=== PATIENT | female | born 1940 | race Caucasian/White ===

== ENCOUNTER 2018-03-01 08:49 | Inpatient (IN) | payer MEDICARE, OTHER ==
[2018-03-01 09:14] LABS: ADD MAN DIFF? NO
[2018-03-01 09:16] LABS: BASOPHILS % 0.2 % (0.0-2.0); EOSINOPHILS # 0.1 10^3/ul (0.0-0.5); EOSINOPHILS % 1.3 % (0.0-7.0); HEMATOCRIT 35.7 % (37.0-47.0); HEMOGLOBIN 10.9 g/dl (12.0-16.0); LYMPHOCYTES % 11.2 % (15.0-51.0); MEAN CORPUSCULAR HEMOGLOBIN 23.9 pg (29.0-33.0); MEAN CORPUSCULAR HGB CONC 30.5 g/dl (32.0-37.0); MEAN CORPUSCULAR VOLUME 78.3 fl (82.0-101.0); MEAN PLATELET VOLUME 10.2 fl (7.4-10.4); MONOCYTE # 0.7 10^3/ul (0.3-0.9); MONOCYTES % 7.7 % (0.0-11.0); NEUTROPHIL # 6.8 10^3/ul (1.6-7.5); NEUTROPHILS % 78.9 % (39.0-77.0); PLATELET COUNT 333 10^3/UL (140-415); RED BLOOD COUNT 4.56 10^6/ul (4.20-5.40)
[2018-03-01 09:16] LABS: WHITE BLOOD COUNT 8.6 10^3/ul (4.8-10.8)
[2018-03-01 09:35] LABS: PROTIME 15.4 Sec (11.9-14.9); PT RATIO 1.2
[2018-03-01 09:36] LABS: ANION GAP 9 (5-13); BLOOD UREA NITROGEN 11 mg/dl (7-20); CALCIUM 8.7 mg/dl (8.4-10.2); CARBON DIOXIDE 34 mmol/L (21-31); CHLORIDE 94 mmol/L (97-110); CREATININE 0.72 mg/dl (0.44-1.00); GLUCOSE 129 mg/dl (70-220); PARTIAL THROMBOPLASTIN TIME 28.6 Sec (23.0-35.0); POTASSIUM 3.4 mmol/L (3.5-5.1); SODIUM 137 mmol/L (135-144)
[2018-03-01] MEDS: morphine 2 MG INJ IV ×4 (10:03→21:51)
[2018-03-01] MEDS: POTASSIUM CHLORIDE (SR) 20 MEQ TAB PO (10:03)
[2018-03-01] MEDS: ONDANSETRON 4 MG INJ IV (10:04)
[2018-03-01] MEDS ORDERED: IPRATROPIUM (NEB) 0.5 MG/2.5 ML AMP (10:19)
[2018-03-01] MEDS ORDERED: LEVALBUTEROL (NEB) 1.25 MG/0.5 ML AMP (10:19)
[2018-03-01 10:23] LABS: URINE BLOOD (Dip) POC Trace-intact (NEGATIVE); URINE GLUCOSE (Dip) POC Negative (NEGATIVE); URINE KETONES (Dip) POC Negative (NEGATIVE); URINE LEUKOCYTE EST (Dip) POC 3+ (NEGATIVE); URINE NITRITE (Dip) POC Negative (NEGATIVE); URINE TOTAL PROTEIN POC 1+ (NEGATIVE)
[2018-03-01] MEDS: LEVALBUTEROL (NEB) 1.25 MG/0.5 ML AMP HHN (10:38)
[2018-03-01] MEDS: IPRATROPIUM (NEB) 0.5 MG/2.5 ML AMP HHN (10:38)
[2018-03-01] MEDS: CIPROFLOXACIN 400MG/D5W 200 ML IVPB (11:11)
[2018-03-01] MEDS ORDERED: NACL 0.9% 3 ML SYG IV (11:30)
[2018-03-01 11:59] LABS: IRON 37 ug/dl (35-150)
[2018-03-01 12:08] LABS: % IRON SATURATION 13 % SAT (22-52); TOTAL IRON BINDING CAPACITY 291 ug/dl (241-421)
[2018-03-01] MEDS ORDERED: VALACYCLOVIR 500 MG TAB PO (17:30)
[2018-03-01] MEDS ORDERED: traMADol 50 MG TAB PO (17:30)
[2018-03-01] MEDS: FUROSEMIDE 40 MG TAB PO ×2 (18:00→20:43)
[2018-03-01] MEDS: POTASSIUM CHLORIDE (SR) 8 MEQ CAP PO (20:41)
[2018-03-01] MEDS: GABAPENTIN 300 MG CAP PO (20:41)
[2018-03-01] MEDS: PRAMIPEXOLE 1 MG TAB PO (20:42)
[2018-03-01] MEDS: FAMOTIDINE 20 MG TAB PO (20:42)
[2018-03-01] MEDS: FLUTICASONE 0.05% 16 GM NAS SPRAY NASAL (21:00)
[2018-03-01 21:42] LABS: IMMEDIATE SPIN CROSSMATCH 1 4
[2018-03-01] MEDS: LEVALBUTEROL (NEB) 0.63 MG/3 ML AMP HHN (23:05)
[2018-03-02 05:25] LABS: ADD MAN DIFF? NO
[2018-03-02 05:37] LABS: WHITE BLOOD COUNT 8.7 10^3/ul (4.8-10.8)
[2018-03-02 05:37] LABS: ABNORMAL IP MESSAGE 1; BASOPHILS % 0.2 % (0.0-2.0); EOSINOPHILS # 0.1 10^3/ul (0.0-0.5); HEMATOCRIT 38.5 % (37.0-47.0); HEMOGLOBIN 11.8 g/dl (12.0-16.0); LYMPHOCYTES # 0.6 10^3/ul (0.8-2.9); LYMPHOCYTES % 6.7 % (15.0-51.0); MEAN CORPUSCULAR HEMOGLOBIN 24.4 pg (29.0-33.0); MEAN CORPUSCULAR HGB CONC 30.6 g/dl (32.0-37.0); MEAN CORPUSCULAR VOLUME 79.5 fl (82.0-101.0); MEAN PLATELET VOLUME 10.5 fl (7.4-10.4); MONOCYTE # 0.8 10^3/ul (0.3-0.9); MONOCYTES % 9.5 % (0.0-11.0); NEUTROPHIL # 7.2 10^3/ul (1.6-7.5); NEUTROPHILS % 82.4 % (39.0-77.0); PLATELET COUNT 296 10^3/UL (140-415); RED BLOOD COUNT 4.84 10^6/ul (4.20-5.40); RED CELL DISTRIBUTION WIDTH 17.6 % (11.5-14.5)
[2018-03-02 05:40] LABS: HEMOGLOBIN A1C 5.8 % (0-5.9)
[2018-03-02] MEDS: FUROSEMIDE 40 MG TAB PO ×2 (06:18→18:00)
[2018-03-02 06:19] LABS: POSITIVE DIFF @See below
[2018-03-02] MEDS: LEVOTHYROXINE 100 MCG TAB PO (06:19)
[2018-03-02] MEDS: PANTOPRAZOLE (EC) 40 MG TAB PO (06:19)
[2018-03-02 06:20] LABS: FREE T4 (FREE THYROXINE) 1.58 ng/dl (0.85-1.93)
[2018-03-02 06:35] LABS: ALANINE AMINOTRANSFERASE 34 IU/L (13-69); ALBUMIN 3.4 g/dl (3.3-4.9); ALBUMIN/GLOBULIN RATIO 0.94; ALKALINE PHOSPHATASE 89 IU/L (42-121); ANION GAP 8 (5-13); ASPARTATE AMINO TRANSFERASE 71 IU/L (15-46); BILIRUBIN,INDIRECT 0.5 mg/dl (0-1.1); BILIRUBIN,TOTAL 0.5 mg/dl (0.2-1.3); BLOOD UREA NITROGEN 11 mg/dl (7-20); CALCIUM 8.4 mg/dl (8.4-10.2); CARBON DIOXIDE 39 mmol/L (21-31); CHLORIDE 90 mmol/L (97-110); CHOL/HDL RATIO 3.7 RATIO; CHOLESTEROL 180 mg/dl (100-200); CREATININE 0.72 mg/dl (0.44-1.00); GLUCOSE 109 mg/dl (70-220); HDL CHOLESTEROL 48 mg/dl (33-92); LDL CHOLESTEROL,CALCULATED 116 mg/dl; MAGNESIUM 1.7 mg/dl (1.7-2.5); PHOSPHORUS 3.8 mg/dl (2.5-4.9); POTASSIUM 3.6 mmol/L (3.5-5.1); SODIUM 137 mmol/L (135-144); TRIGLYCERIDES 82 mg/dl (0-149)
[2018-03-02] MEDS: PRAMIPEXOLE 1 MG TAB PO ×2 (09:34→21:54)
[2018-03-02] MEDS: ROFLUMILAST 500 MCG TABLET PO (09:34)
[2018-03-02] MEDS: MONTELUKAST 10 MG TAB PO (09:34)
[2018-03-02] MEDS: POTASSIUM CHLORIDE (SR) 8 MEQ CAP PO ×3 (09:34→21:55)
[2018-03-02] MEDS: METOPROLOL 50 MG TAB PO (09:35)
[2018-03-02] MEDS: ENOXAPARIN 40 MG/0.4 ML SYG SC (09:38)
[2018-03-02] MEDS: FLUTICASONE 0.05% 16 GM NAS SPRAY NASAL ×2 (09:38→21:00)
[2018-03-02] MEDS: LEVALBUTEROL (NEB) 0.63 MG/3 ML AMP HHN ×2 (10:14→22:09)
[2018-03-02] MEDS: GABAPENTIN 300 MG CAP PO (21:54)
[2018-03-03] MEDS: FUROSEMIDE 40 MG TAB PO ×2 (05:44→18:00)
[2018-03-03] MEDS: PANTOPRAZOLE (EC) 40 MG TAB PO (05:44)
[2018-03-03 05:48] LABS: ADD MAN DIFF? NO; BASOPHILS % 0.3 % (0.0-2.0); EOSINOPHILS # 0.1 10^3/ul (0.0-0.5); EOSINOPHILS % 1.2 % (0.0-7.0); HEMATOCRIT 37.1 % (37.0-47.0); HEMOGLOBIN 11.7 g/dl (12.0-16.0); LYMPHOCYTES # 0.9 10^3/ul (0.8-2.9); LYMPHOCYTES % 9.1 % (15.0-51.0); MEAN CORPUSCULAR HEMOGLOBIN 24.7 pg (29.0-33.0); MEAN CORPUSCULAR HGB CONC 31.5 g/dl (32.0-37.0); MEAN CORPUSCULAR VOLUME 78.3 fl (82.0-101.0); MEAN PLATELET VOLUME 10.9 fl (7.4-10.4); MONOCYTE # 0.9 10^3/ul (0.3-0.9); MONOCYTES % 8.9 % (0.0-11.0); NEUTROPHIL # 7.8 10^3/ul (1.6-7.5); NEUTROPHILS % 80.1 % (39.0-77.0); PLATELET COUNT 297 10^3/UL (140-415); RED BLOOD COUNT 4.74 10^6/ul (4.20-5.40); RED CELL DISTRIBUTION WIDTH 17.7 % (11.5-14.5)
[2018-03-03 05:48] LABS: WHITE BLOOD COUNT 9.7 10^3/ul (4.8-10.8)
[2018-03-03 06:55] LABS: ANION GAP 9 (5-13); BLOOD UREA NITROGEN 12 mg/dl (7-20); CALCIUM 8.5 mg/dl (8.4-10.2); CARBON DIOXIDE 36 mmol/L (21-31); CHLORIDE 88 mmol/L (97-110); CREATININE 0.63 mg/dl (0.44-1.00); GLUCOSE 92 mg/dl (70-220); MAGNESIUM 1.8 mg/dl (1.7-2.5); POTASSIUM 3.9 mmol/L (3.5-5.1); SODIUM 133 mmol/L (135-144)
[2018-03-03] MEDS: LEVOTHYROXINE 100 MCG TAB PO (07:00)
[2018-03-03] MEDS: ROFLUMILAST 500 MCG TABLET PO (09:00)
[2018-03-03] MEDS: ENOXAPARIN 40 MG/0.4 ML SYG SC (09:00)
[2018-03-03] MEDS: POTASSIUM CHLORIDE (SR) 8 MEQ CAP PO ×4 (09:01→20:36)
[2018-03-03] MEDS: PRAMIPEXOLE 1 MG TAB PO ×2 (09:02→20:35)
[2018-03-03] MEDS: MONTELUKAST 10 MG TAB PO (09:02)
[2018-03-03] MEDS: METOPROLOL 50 MG TAB PO (09:02)
[2018-03-03] MEDS: FLUTICASONE 0.05% 16 GM NAS SPRAY NASAL ×2 (09:07→21:00)
[2018-03-03] MEDS: DEXTROSE 5%-LR 1,000 ML IV ×2 (10:25→15:25)
[2018-03-03] MEDS ORDERED: VANCOMYCIN 1 GM (PMX) 250 ML (10:29)
[2018-03-03] MEDS ORDERED: NALOXONE (0.4 MG/ML) INJ IV ×2 (10:30→12:30)
[2018-03-03] MEDS ORDERED: NACL 0.9% 3 ML SYG IV (10:30)
[2018-03-03] MEDS ORDERED: FAMOTIDINE 20 MG INJ (10:33)
[2018-03-03] MEDS ORDERED: FENTAnyl 50 MCG/ML VIAL (10:33)
[2018-03-03] MEDS ORDERED: morphine SULFATE/PF (10 MG/10 ML) INJ (10:51)
[2018-03-03] MEDS ORDERED: PHENYLephrine (100 MCG/ML) 5ML SYG ×3 (11:02→12:52)
[2018-03-03] MEDS ORDERED: DEXAMETHASONE 4 MG/ML 1 ML INJ (11:16)
[2018-03-03] MEDS ORDERED: PROPOFOL 20 ML (11:16)
[2018-03-03] MEDS ORDERED: ONDANSETRON 4 MG INJ (11:16)
[2018-03-03] MEDS ORDERED: ROCURONIUM 50 MG INJ (11:16)
[2018-03-03] MEDS ORDERED: LIDOCAINE 2% (SDV) 5 ML INJ (11:16)
[2018-03-03] MEDS ORDERED: EPHEDrine SULFATE 50 MG/5 ML SYG (11:17)
[2018-03-03] MEDS ORDERED: PROCHLORPERAZINE 10 MG INJ IV (12:30)
[2018-03-03] MEDS ORDERED: HYDROmorphONE 1 MG/5 ML IV SYRINGE IV ×2 (12:30)
[2018-03-03] MEDS ORDERED: MEPERIDINE 25 MG INJ IV (12:30)
[2018-03-03] MEDS ORDERED: DIPHENHYDRAMINE 50 MG INJ IV ×2 (12:30)
[2018-03-03] MEDS ORDERED: HYDROmorphONE 0.5 MG/0.5 ML SYG IV (12:30)
[2018-03-03] MEDS ORDERED: ACETAMINOPHEN 500 MG TAB PO (12:30)
[2018-03-03] MEDS ORDERED: ONDANSETRON 4 MG INJ IV ×2 (12:30)
[2018-03-03] MEDS ORDERED: FENTAnyl 50 MCG/ML VIAL IV (12:30)
[2018-03-03] MEDS ORDERED: LABETALOL HCL 20MG INJ IV (12:30)
[2018-03-03] MEDS ORDERED: hydrALAzine 20 MG INJ IV (12:30)
[2018-03-03] MEDS ORDERED: SUGAMMADEX SODIUM 200 MG/2 ML VIAL IV ×2 (12:52)
[2018-03-03] MEDS ORDERED: LEVALBUTEROL (NEB) 1.25 MG/0.5 ML AMP (14:34)
[2018-03-03] MEDS: LEVALBUTEROL (NEB) 0.63 MG/3 ML AMP HHN ×2 (14:38→20:19)
[2018-03-03] MEDS: FLUTICASONE/VILANTEROL 200-25 INH DEVICE INH (16:00)
[2018-03-03] MEDS: VANCOMYCIN 1 GM (PMX) 250 ML IVPB (20:34)
[2018-03-03] MEDS: GABAPENTIN 300 MG CAP PO (20:35)
[2018-03-03] MEDS: TIOTROPIUM 18 MCG CAPSULE INHA DEV INH (20:43)
[2018-03-04] MEDS: LEVALBUTEROL (NEB) 0.63 MG/3 ML AMP HHN ×6 (00:36→21:00)
[2018-03-04 05:10] LABS: ADD MAN DIFF? NO
[2018-03-04 05:21] LABS: BASOPHILS % 0.2 % (0.0-2.0); EOSINOPHILS % 0.3 % (0.0-7.0); HEMATOCRIT 31.4 % (37.0-47.0); HEMOGLOBIN 9.7 g/dl (12.0-16.0); LYMPHOCYTES # 0.7 10^3/ul (0.8-2.9); LYMPHOCYTES % 6.2 % (15.0-51.0); MEAN CORPUSCULAR HEMOGLOBIN 24.9 pg (29.0-33.0); MEAN CORPUSCULAR HGB CONC 30.9 g/dl (32.0-37.0); MEAN CORPUSCULAR VOLUME 80.5 fl (82.0-101.0); MEAN PLATELET VOLUME 10.7 fl (7.4-10.4); MONOCYTE # 1.3 10^3/ul (0.3-0.9); NEUTROPHIL # 9.8 10^3/ul (1.6-7.5); NEUTROPHILS % 81.7 % (39.0-77.0); PLATELET COUNT 241 10^3/UL (140-415); RED CELL DISTRIBUTION WIDTH 17.7 % (11.5-14.5)
[2018-03-04] MEDS: PANTOPRAZOLE (EC) 40 MG TAB PO (05:59)
[2018-03-04] MEDS: LEVOTHYROXINE 100 MCG TAB PO (06:00)
[2018-03-04] MEDS: FUROSEMIDE 40 MG TAB PO ×3 (06:00→17:44)
[2018-03-04] MEDS: DEXTROSE 5%-LR 1,000 ML IV ×2 (07:56→11:40)
[2018-03-04] MEDS: HYDROmorphONE 0.5 MG/0.5 ML SYG IV (07:56)
[2018-03-04] MEDS: VANCOMYCIN 1 GM (PMX) 250 ML IVPB (07:57)
[2018-03-04] MEDS: FLUTICASONE/VILANTEROL 200-25 INH DEVICE INH ×2 (09:00→11:17)
[2018-03-04] MEDS: VALACYCLOVIR 500 MG TAB PO (09:02)
[2018-03-04] MEDS: ROFLUMILAST 500 MCG TABLET PO (09:03)
[2018-03-04] MEDS: MONTELUKAST 10 MG TAB PO (09:03)
[2018-03-04] MEDS: PRAMIPEXOLE 1 MG TAB PO ×2 (09:03→20:51)
[2018-03-04] MEDS: POTASSIUM CHLORIDE (SR) 8 MEQ CAP PO ×3 (09:03→20:52)
[2018-03-04] MEDS: TIOTROPIUM 18 MCG CAPSULE INHA DEV INH (09:04)
[2018-03-04] MEDS: METOPROLOL 50 MG TAB PO (09:04)
[2018-03-04] MEDS: FLUTICASONE 0.05% 16 GM NAS SPRAY NASAL ×2 (09:04→20:54)
[2018-03-04] MEDS: ENOXAPARIN 40 MG/0.4 ML SYG SC (09:08)
[2018-03-04] MEDS: oxyCODONE 5 MG TAB PO ×2 (11:16→15:39)
[2018-03-04] MEDS: FERROUS FUMARATE (SR) TAB PO (11:24)
[2018-03-04] MEDS: morphine 4 MG/ML VIAL IV (19:37)
[2018-03-04] MEDS: GABAPENTIN 300 MG CAP PO (20:50)
[2018-03-04] MEDS: METOPROLOL 25 MG TAB PO (20:54)
[2018-03-05] MEDS: LEVALBUTEROL (NEB) 0.63 MG/3 ML AMP HHN ×4 (01:10→12:03)
[2018-03-05 05:33] LABS: ADD MAN DIFF? NO
[2018-03-05 05:49] LABS: ABNORMAL IP MESSAGE 1; BASOPHILS % 0.2 % (0.0-2.0); EOSINOPHILS # 0.1 10^3/ul (0.0-0.5); EOSINOPHILS % 1.1 % (0.0-7.0); HEMATOCRIT 28.7 % (37.0-47.0); HEMOGLOBIN 9.1 g/dl (12.0-16.0); LYMPHOCYTES % 7.6 % (15.0-51.0); MEAN CORPUSCULAR HEMOGLOBIN 24.9 pg (29.0-33.0); MEAN CORPUSCULAR HGB CONC 31.7 g/dl (32.0-37.0); MEAN CORPUSCULAR VOLUME 78.6 fl (82.0-101.0); MEAN PLATELET VOLUME 11.2 fl (7.4-10.4); MONOCYTE # 1.6 10^3/ul (0.3-0.9); MONOCYTES % 12.3 % (0.0-11.0); NEUTROPHIL # 9.9 10^3/ul (1.6-7.5); NEUTROPHILS % 78.1 % (39.0-77.0); PLATELET COUNT 273 10^3/UL (140-415); RED BLOOD COUNT 3.65 10^6/ul (4.20-5.40); RED CELL DISTRIBUTION WIDTH 17.7 % (11.5-14.5)
[2018-03-05 05:49] LABS: WHITE BLOOD COUNT 12.7 10^3/ul (4.8-10.8)
[2018-03-05 06:00] LABS: POSITIVE DIFF @See below
[2018-03-05] MEDS: FUROSEMIDE 40 MG TAB PO ×2 (06:00→19:06)
[2018-03-05] MEDS: PANTOPRAZOLE (EC) 40 MG TAB PO (06:05)
[2018-03-05] MEDS: oxyCODONE 5 MG TAB PO ×2 (06:05→09:28)
[2018-03-05] MEDS: DEXTROSE 5%-LR 1,000 ML IV (06:07)
[2018-03-05] MEDS: LEVOTHYROXINE 100 MCG TAB PO (06:14)
[2018-03-05 06:15] LABS: ANION GAP 6 (5-13); BLOOD UREA NITROGEN 12 mg/dl (7-20); CARBON DIOXIDE 36 mmol/L (21-31); CHLORIDE 90 mmol/L (97-110); CREATININE 0.77 mg/dl (0.44-1.00); GLUCOSE 108 mg/dl (70-220); POTASSIUM 4.1 mmol/L (3.5-5.1); SODIUM 132 mmol/L (135-144)
[2018-03-05 07:21] LABS: MAGNESIUM 1.7 mg/dl (1.7-2.5)
[2018-03-05] MEDS: POTASSIUM CHLORIDE (SR) 8 MEQ CAP PO ×3 (09:13→23:33)
[2018-03-05] MEDS: FERROUS FUMARATE (SR) TAB PO (09:13)
[2018-03-05] MEDS: MONTELUKAST 10 MG TAB PO (09:13)
[2018-03-05] MEDS: PRAMIPEXOLE 1 MG TAB PO ×2 (09:14→23:33)
[2018-03-05] MEDS: MIRABEGRON 50 MG PO (09:14)
[2018-03-05] MEDS: TIOTROPIUM 18 MCG CAPSULE INHA DEV INH (09:14)
[2018-03-05] MEDS: VALACYCLOVIR 500 MG TAB PO (09:14)
[2018-03-05] MEDS: FLUTICASONE/VILANTEROL 200-25 INH DEVICE INH (09:14)
[2018-03-05] MEDS: METOPROLOL 25 MG TAB PO ×2 (09:15→23:35)
[2018-03-05] MEDS: FLUTICASONE 0.05% 16 GM NAS SPRAY NASAL ×2 (09:16→23:32)
[2018-03-05] MEDS: ENOXAPARIN 40 MG/0.4 ML SYG SC (09:16)
[2018-03-05] MEDS: ROFLUMILAST 500 MCG TABLET PO (13:03)
[2018-03-05 14:57] LABS: OSMOLALITY 271 mOsm/kg (280-295)
[2018-03-05] MEDS: ONDANSETRON 4 MG INJ IV (15:06)
[2018-03-05] MEDS ORDERED: LEVALBUTEROL (NEB) 1.25 MG/0.5 ML AMP (17:27)
[2018-03-05] MEDS: GABAPENTIN 300 MG CAP PO (23:34)
[2018-03-05] MEDS: ACETAMINOPHEN 325 MG TAB PO (23:38)
[2018-03-06] MEDS: FUROSEMIDE 40 MG TAB PO (06:00)
[2018-03-06] MEDS: PANTOPRAZOLE (EC) 40 MG TAB PO (06:24)
[2018-03-06] MEDS: LEVOTHYROXINE 100 MCG TAB PO (06:25)
[2018-03-06] MEDS: TIOTROPIUM 18 MCG CAPSULE INHA DEV INH (09:00)
[2018-03-06] MEDS: METOPROLOL 25 MG TAB PO ×2 (09:00→21:01)
[2018-03-06] MEDS: FLUTICASONE/VILANTEROL 200-25 INH DEVICE INH (09:00)
[2018-03-06] MEDS: FLUTICASONE 0.05% 16 GM NAS SPRAY NASAL ×2 (09:00→21:02)
[2018-03-06] MEDS: oxyCODONE 5 MG TAB PO (09:38)
[2018-03-06] MEDS: MIRABEGRON 50 MG PO (09:39)
[2018-03-06] MEDS: PRAMIPEXOLE 1 MG TAB PO ×2 (09:42→21:44)
[2018-03-06] MEDS: MONTELUKAST 10 MG TAB PO (09:44)
[2018-03-06] MEDS: FERROUS FUMARATE (SR) TAB PO (10:29)
[2018-03-06] MEDS: ONDANSETRON 4 MG INJ IV ×2 (10:29→21:44)
[2018-03-06] MEDS: ROFLUMILAST 500 MCG TABLET PO (10:30)
[2018-03-06] MEDS: VALACYCLOVIR 500 MG TAB PO (10:30)
[2018-03-06] MEDS: POTASSIUM CHLORIDE (SR) 8 MEQ CAP PO ×4 (10:30→21:02)
[2018-03-06] MEDS: ENOXAPARIN 40 MG/0.4 ML SYG SC (12:00)
[2018-03-06] MEDS: GABAPENTIN 300 MG CAP PO (21:01)
[2018-03-07 05:01] LABS: ADD MAN DIFF? NO
[2018-03-07 05:06] LABS: BASOPHILS % 0.3 % (0.0-2.0); EOSINOPHILS # 0.4 10^3/ul (0.0-0.5); EOSINOPHILS % 4.6 % (0.0-7.0); HEMATOCRIT 29.3 % (37.0-47.0); HEMOGLOBIN 9.1 g/dl (12.0-16.0); LYMPHOCYTES # 0.6 10^3/ul (0.8-2.9); LYMPHOCYTES % 7.7 % (15.0-51.0); MEAN CORPUSCULAR HEMOGLOBIN 24.8 pg (29.0-33.0); MEAN CORPUSCULAR HGB CONC 31.1 g/dl (32.0-37.0); MEAN CORPUSCULAR VOLUME 79.8 fl (82.0-101.0); MEAN PLATELET VOLUME 11.1 fl (7.4-10.4); MONOCYTE # 0.6 10^3/ul (0.3-0.9); MONOCYTES % 7.7 % (0.0-11.0); NEUTROPHIL # 6.2 10^3/ul (1.6-7.5); NEUTROPHILS % 79.3 % (39.0-77.0); PLATELET COUNT 267 10^3/UL (140-415); RED BLOOD COUNT 3.67 10^6/ul (4.20-5.40); RED CELL DISTRIBUTION WIDTH 17.9 % (11.5-14.5)
[2018-03-07 05:06] LABS: WHITE BLOOD COUNT 7.8 10^3/ul (4.8-10.8)
[2018-03-07 05:33] LABS: ANION GAP 7 (5-13); BLOOD UREA NITROGEN 13 mg/dl (7-20); CALCIUM 8.3 mg/dl (8.4-10.2); CARBON DIOXIDE 36 mmol/L (21-31); CHLORIDE 90 mmol/L (97-110); CREATININE 0.63 mg/dl (0.44-1.00); GLUCOSE 73 mg/dl (70-220); POTASSIUM 4.2 mmol/L (3.5-5.1); SODIUM 133 mmol/L (135-144)
[2018-03-07] MEDS: FUROSEMIDE 40 MG TAB PO ×2 (06:00→06:18)
[2018-03-07] MEDS: LEVOTHYROXINE 100 MCG TAB PO (06:19)
[2018-03-07] MEDS: PANTOPRAZOLE (EC) 40 MG TAB PO (06:19)
[2018-03-07] MEDS: ONDANSETRON 4 MG INJ IV ×2 (08:53→13:31)
[2018-03-07] MEDS: PRAMIPEXOLE 1 MG TAB PO (08:53)
[2018-03-07] MEDS: DOCUSATE SODIUM 100 MG CAP PO (08:54)
[2018-03-07] MEDS: MONTELUKAST 10 MG TAB PO (08:54)
[2018-03-07] MEDS: POTASSIUM CHLORIDE (SR) 8 MEQ CAP PO (08:54)
[2018-03-07] MEDS: POLYETHYLENE GLYCOL 17 GM PACKET PO (08:54)
[2018-03-07] MEDS: VALACYCLOVIR 500 MG TAB PO (08:54)
[2018-03-07] MEDS: FERROUS FUMARATE (SR) TAB PO (08:54)
[2018-03-07] MEDS: ROFLUMILAST 500 MCG TABLET PO (08:54)
[2018-03-07] MEDS: FLUTICASONE 0.05% 16 GM NAS SPRAY NASAL (08:55)
[2018-03-07] MEDS: FLUTICASONE/VILANTEROL 200-25 INH DEVICE INH (08:55)
[2018-03-07] MEDS: MIRABEGRON 50 MG PO (08:55)
[2018-03-07] MEDS: METOPROLOL 25 MG TAB PO (08:56)
[2018-03-07] MEDS: TIOTROPIUM 18 MCG CAPSULE INHA DEV INH (09:00)
[2018-03-07] MEDS: morphine 4 MG/ML VIAL IV (09:45)
[2018-03-07] MEDS: ENOXAPARIN 40 MG/0.4 ML SYG SC (09:48)
[2018-03-07] MEDS: TAMSULOSIN (SR) 0.4 MG CAP PO (12:06)
== END 2018-03-07 13:45 | disposition home health service (06) | DRG 470 ==
LOC: E/R 08:49 → MS1 10:04
PROC: 0SRS0JA Replacement of Left Hip Joint, Femoral Surface with Synthetic Substitute, Uncemented, Open Approach (ICD-10-PCS; principal; 2018-03-03 10:00)
DX: S72.002A Fracture of unspecified part of neck of left femur, initial encounter for closed fracture (principal); I50.32 Chronic diastolic (congestive) heart failure; W19.XXXA Unspecified fall, initial encounter; Z90.49 Acquired absence of other specified parts of digestive tract; G20 Parkinson's disease; J45.909 Unspecified asthma, uncomplicated; I11.0 Hypertensive heart disease with heart failure; M19.90 Unspecified osteoarthritis, unspecified site; M81.0 Age-related osteoporosis without current pathological fracture; E03.9 Hypothyroidism, unspecified; D64.9 Anemia, unspecified; E11.42 Type 2 diabetes mellitus with diabetic polyneuropathy; J44.9 Chronic obstructive pulmonary disease, unspecified
CPT/HCPCS: 36415; 36430; 71045; 73500; 73510; 73550; 73590; 80048; 80053; 80061; 81003; 83036; 83540; 83735; 83930; 84100; 84439; 84443; 85025; 85610; 85730; 86644; 86850; 86900; 86901; 86920; 87086; 88304; 88311; 93005; 93306; 94640; 94644; 94664; 96374; 96375; 97110; 97162; 97530; 99285-25